=== PATIENT | male | born 1955 | race Caucasian/White ===

== ENCOUNTER 2016-11-21 19:22 | Emergency (ER) | payer OTHER ==
[~2016-11-21 19:22] MED LIST: ASPIR 8181 MG PO; BACTROBAN2% TP; CEL500 PO; CLARITIN REDITAB5 MG PO; COLCRYS0.6 M1 PO; FLA500 PO; FLO4 PO; HECORIA1 M1 PO; IMODIUM2 MG PO; LAC PO; LANTUS SOLOS100 U/M1 SQ; LASIX20 MG PO; LEVAQUIN750 MG PO; MG PLUS PROTEIN1 TAB PO; MP PO; NEU300 PO; NIFEDIAC CC PO; NOR10 PO; NOR10T PO; NOVOLOG100 U/ML SC; PREDNISONE2.5 MG PO; PROGRAF1 MG PO; PROTEIN PO; RANITIDINE HCL150 M1 PO; SENSIPAR30 M1 PO; SIMVASTATIN10 M1 PO; STOOL SOFTENER100 MG PO; ZOCOR10 MG PO
[2016-11-21 19:28] VITALS: BP 183/91
== END 2016-11-21 21:02 | disposition home or self-care (01) ==
LOC: ED 19:22
DX: H95.42 Postprocedural hemorrhage of ear and mastoid process following other procedure (principal); I63.9 Cerebral infarction, unspecified; I10 Essential (primary) hypertension; Z79.899 Other long term (current) drug therapy

== ENCOUNTER 2017-02-13 07:11 | Inpatient (IN) | payer OTHER ==
[~2017-02-13] VITALS: Ht 165.1 cm; Wt 58.1 kg
[~2017-02-13 07:11] MED LIST changes: -COLCRYS0.6 M1 PO; +COLCRYS0.6 M2 PO
[2017-02-13 08:09] LABS: microscopic required? YES; urine erythrocyte 1+ (NEGATIVE)
[2017-02-13 08:13] LABS: BASOPHIL % 0.2 % (0-2); CALCIUM 8.7 mg/dL (8.5-10.1); CARBON DIOXIDE 27.1 mmol/L (21-32); CREATININE SERUM 2.1 mg/dL (0.7-1.3); PLATELET COUNT 352 x10^3mcL (130-400); POTASSIUM SERUM 4.2 mmol/L (3.5-5.1); RED CELL DISTRIBUTION WIDTH 17.8 % (11.5-14.5)
[2017-02-13 08:19] LABS: ALBUMIN 3.4 g/dL (3.4-5.0); BILIRUBIN TOTAL 0.6 mg/dL (0.20-1.00); TOTAL PROTEIN, SERUM 7.4 g/dL (6.4-8.2)
[2017-02-13] MEDS ORDERED: FLE10 PO (09:12)
[2017-02-13] MEDS ORDERED: SENSIPAR30 M1 PO (09:14)
[2017-02-13] MEDS ORDERED: CARVEDILOL25 M1 PO (09:15)
[2017-02-13] MEDS ORDERED: MINOXIDIL2.5 MG PO (09:15)
[2017-02-13] MEDS ORDERED: VITAMIN D50000 I4 PO (09:17)
[2017-02-13] MEDS ORDERED: SIMVASTATIN10 M1 PO (09:17)
[2017-02-13] MEDS ORDERED: PROGRAF1 MG PO (09:19)
[2017-02-13] MEDS ORDERED: ALLOPURINOL100 MG PO (09:20)
[2017-02-13 10:21] LABS: MAGNESIUM 1.4 mg/dL (1.8-2.4); PHOSPHOROUS 4.2 mg/dL (2.5-4.9)
[2017-02-13 10:29] LABS: FREE T4 1.35 ng/dL (0.76-1.46); FREE THYROXINE INDEX 3.4 ug/dL (1.4-4.5); T3 TOTAL 0.7 ng/mL; T4(THYROXINE) 9.2 ug/dL (4.7-13.3)
[2017-02-13 11:37] LABS: RED BLOOD CELLS 4.35 M/mm3 (4.52-5.90)
[2017-02-13 12:09] VITALS: BP 144/77
[2017-02-13 12:14] LABS: IRON 23 ug/dL (65-170); TOTAL IRON BINDING CAPACITY 195 ug/dL (250-450)
[2017-02-13 20:26] VITALS: BP 151/77
[2017-02-13 21:47] LABS: AMPHETAMINE QUAL UR NONE DETECTED (NEG <=1000)
[2017-02-14 05:35] LABS: CALCIUM 8.4 mg/dL (8.5-10.1); CARBON DIOXIDE 23.9 mmol/L (21-32); MAGNESIUM 1.7 mg/dL (1.8-2.4); PHOSPHOROUS 4.1 mg/dL (2.5-4.9); POTASSIUM SERUM 3.9 mmol/L (3.5-5.1)
[2017-02-14 05:47] LABS: BASOPHIL % 0.7 % (0-2); PLATELET COUNT 331 x10^3mcL (130-400)
[2017-02-14 05:49] LABS: RED CELL DISTRIBUTION WIDTH 17.8 % (11.5-14.5)
[2017-02-14 05:51] VITALS: BP 151/73
[2017-02-14 09:17] VITALS: BP 166/77
[2017-02-14 12:37] VITALS: BP 126/75
[2017-02-14 17:01] VITALS: BP 155/78
[2017-02-14 21:04] VITALS: BP 143/75
[2017-02-15 04:30] VITALS: BP 148/73
[2017-02-15 06:48] LABS: BASOPHIL % 0.8 % (0-2)
[2017-02-15 06:51] LABS: ALBUMIN 2.6 g/dL (3.4-5.0); CALCIUM 9.1 mg/dL (8.5-10.1); CREATININE SERUM 1.8 mg/dL (0.7-1.3); MAGNESIUM 1.9 mg/dL (1.8-2.4); PHOSPHOROUS 3.3 mg/dL (2.5-4.9); POTASSIUM SERUM 3.8 mmol/L (3.5-5.1)
[2017-02-15 07:33] LABS: RED CELL DISTRIBUTION WIDTH 17.8 % (11.5-14.5)
[2017-02-15 07:35] LABS: rbc morphology (normal/abnorm) ABNORMAL (NORMAL); schistocyte (helmet cell) 2+
[2017-02-15 07:36] LABS: PLATELET COUNT 319 x10^3mcL (130-400)
[2017-02-15 08:44] VITALS: BP 156/77
[2017-02-15 17:07] VITALS: BP 132/67
[2017-02-15 20:21] VITALS: BP 156/76
[2017-02-16] VITALS (7 sets, daily range): BP systolic 119–188; BP diastolic 62–87
[2017-02-16 06:18] LABS: BASOPHIL % 1.1 % (0-2); PLATELET COUNT 351 x10^3mcL (130-400)
[2017-02-16 06:24] LABS: CALCIUM 9.8 mg/dL (8.5-10.1); CARBON DIOXIDE 22.9 mmol/L (21-32); CREATININE SERUM 1.8 mg/dL (0.7-1.3); MAGNESIUM 1.5 mg/dL (1.8-2.4); PHOSPHOROUS 3.2 mg/dL (2.5-4.9); POTASSIUM SERUM 3.7 mmol/L (3.5-5.1)
[2017-02-16 07:06] LABS: RED CELL DISTRIBUTION WIDTH 17.4 % (11.5-14.5)
[2017-02-16] MEDS ORDERED: FLA500 PO (07:52)
[2017-02-16] MEDS ORDERED: CIPRO500 MG PO (07:54)
[2017-02-16] MEDS ORDERED: LAC PO (07:54)
[2017-02-16] MEDS ORDERED: COL100 PO (07:55)
[2017-02-16] MEDS ORDERED: FIBER625 MG PO (08:07)
[2017-02-16] MEDS ORDERED: PRI20 PO (09:21)
[2017-02-16] MEDS ORDERED: LAC30L PO (09:22)
== END 2017-02-16 17:30 | disposition home or self-care (01) | DRG 244 ==
LOC: ED 07:11 → DU 09:30
PROVIDERS: Emergency Medicine; Family Medicine Sports Medicine; Internal Medicine Gastroenterology; ADMIT Family Medicine
PROC: 0DDN8ZX Extraction of Sigmoid Colon, Via Natural or Artificial Opening Endoscopic, Diagnostic (ICD-10-PCS; principal; 2017-02-16 10:30)
PROC: 0DBN8ZZ Excision of Sigmoid Colon, Via Natural or Artificial Opening Endoscopic (ICD-10-PCS; 2017-02-16 10:30)
DX: K57.32 Diverticulitis of large intestine without perforation or abscess without bleeding (principal); N17.0 Acute kidney failure with tubular necrosis; E43 Unspecified severe protein-calorie malnutrition; I50.43 Acute on chronic combined systolic (congestive) and diastolic (congestive) heart failure; N18.3 Chronic kidney disease, stage 3 (moderate); Z94.0 Kidney transplant status; I13.0 Hypertensive heart and chronic kidney disease with heart failure and stage 1 through stage 4 chronic kidney disease, or unspecified chronic kidney disease; E11.51 Type 2 diabetes mellitus with diabetic peripheral angiopathy without gangrene; N28.1 Cyst of kidney, acquired; K64.8 Other hemorrhoids; K63.5 Polyp of colon; D63.1 Anemia in chronic kidney disease; E83.42 Hypomagnesemia; E78.5 Hyperlipidemia, unspecified; E03.9 Hypothyroidism, unspecified; Z68.1 Body mass index [BMI] 19.9 or less, adult; Z87.891 Personal history of nicotine dependence; Z85.828 Personal history of other malignant neoplasm of skin
CPT/HCPCS: 45380; 82962; 83880; 84439; 87046; 87046-59; J1200; J1610; J1956; J2250; J2270; J2310; J2405; J3010; J3475; J3490; J7030; J7507; Q0092

== ENCOUNTER 2017-03-27 17:13 | Inpatient (IN) | payer OTHER ==
[~2017-03-27] VITALS: Ht 165.1 cm; Wt 70.5 kg
[~2017-03-27 17:13] MED LIST changes: +ALLOPURINOL100 MG PO; +CARVEDILOL25 M1 PO; +CIPRO500 MG PO; +COL100 PO; +FIBER625 MG PO; +FLE10 PO; +LAC30L PO; +MINOXIDIL2.5 MG PO; +PRI20 PO; +VITAMIN D50000 I4 PO
[2017-03-27 20:59] LABS: CARBON DIOXIDE 26.5 mmol/L (21-32); CREATININE SERUM 2.6 mg/dL (0.7-1.3); POTASSIUM SERUM 4.6 mmol/L (3.5-5.1)
[2017-03-27 21:00] LABS: CALCIUM 8.6 mg/dL (8.5-10.1)
[2017-03-27 21:10] LABS: BILIRUBIN TOTAL 0.3 mg/dL (0.20-1.00); FREE T4 1.13 ng/dL (0.76-1.46); TOTAL PROTEIN, SERUM 7.8 g/dL (6.4-8.2)
[2017-03-27 21:11] LABS: ALBUMIN 2.9 g/dL (3.4-5.0)
[2017-03-27 21:20] LABS: BASOPHIL % 0.2 % (0-2)
[2017-03-27 21:21] LABS: UA SPECIFIC GRAVITY 1.015 (1.005-1.035); microscopic required? YES; urine erythrocyte 1+ (NEGATIVE)
[2017-03-27 21:25] LABS: PLATELET COUNT 603 x10^3mcL (130-400); RED CELL DISTRIBUTION WIDTH 19.5 % (11.5-14.5)
[2017-03-27] MEDS ORDERED: NEU300 (23:37)
[2017-03-27] MEDS ORDERED: NOVI (23:38)
[2017-03-28 01:06] VITALS: BP 167/90
[2017-03-28 02:40] LABS: PHOSPHOROUS 5.1 mg/dL (2.5-4.9)
[2017-03-28 02:41] LABS: T3 TOTAL 0.99 ng/mL
[2017-03-28 02:44] LABS: CHOLESTEROL/HDL RATIO 2.3
[2017-03-28 02:47] LABS: FREE T4 1.16 ng/dL (0.76-1.46); FREE THYROXINE INDEX 2.8 ug/dL (1.4-4.5); T4(THYROXINE) 8.9 ug/dL (4.7-13.3)
[2017-03-28 04:18] LABS: RED CELL DISTRIBUTION WIDTH 19.7 % (11.5-14.5)
[2017-03-28 04:23] LABS: CALCIUM 8.3 mg/dL (8.5-10.1); CARBON DIOXIDE 26.7 mmol/L (21-32); CREATININE SERUM 2.6 mg/dL (0.7-1.3); POTASSIUM SERUM 3.5 mmol/L (3.5-5.1)
[2017-03-28 04:35] LABS: PLATELET COUNT 543 x10^3mcL (130-400)
[2017-03-28 04:36] LABS: BAND NEUTROPHIL 3 % (0-10); MONOCYTE 2 % (0-7); SEGMENTED NEUTROPHILS 50 % (37-75); rbc morphology (normal/abnorm) ABNORMAL (NORMAL)
[2017-03-28 04:37] LABS: PLATELET MORPHOLOGY PLATELETS INCREASED
[2017-03-28 05:37] VITALS: BP 134/77
[2017-03-28 07:30] LABS: AMPHETAMINE QUAL UR NONE DETECTED (NEG <=1000)
[2017-03-28 09:18] VITALS: BP 125/67
[2017-03-28 12:30] VITALS: BP 140/82
[2017-03-28 17:20] VITALS: BP 147/85
[2017-03-28 20:56] VITALS: BP 140/81
[2017-03-29 06:23] LABS: PLATELET COUNT 500 x10^3mcL (130-400); RED CELL DISTRIBUTION WIDTH 19.5 % (11.5-14.5)
[2017-03-29 06:24] VITALS: BP 125/80
[2017-03-29 06:36] LABS: CALCIUM 8.5 mg/dL (8.5-10.1); CREATININE SERUM 2.6 mg/dL (0.7-1.3); PHOSPHOROUS 5.5 mg/dL (2.5-4.9); POTASSIUM SERUM 3.9 mmol/L (3.5-5.1); URIC ACID 5.2 mg/dL (3.5-7.2)
[2017-03-29 08:10] LABS: MONOCYTE 5 % (0-7); SEGMENTED NEUTROPHILS 77 % (37-75); rbc morphology (normal/abnorm) ABNORMAL (NORMAL)
[2017-03-29 10:05] VITALS: BP 136/75
[2017-03-29 12:57] VITALS: BP 125/71
[2017-03-29 17:09] VITALS: BP 132/76
[2017-03-29 20:36] VITALS: BP 121/85
[2017-03-30 05:42] VITALS: BP 104/65
[2017-03-30 06:26] LABS: CALCIUM 8.9 mg/dL (8.5-10.1); CARBON DIOXIDE 25.7 mmol/L (21-32); CREATININE SERUM 2.6 mg/dL (0.7-1.3)
[2017-03-30 07:31] LABS: PLATELET COUNT 525 x10^3mcL (130-400); RED CELL DISTRIBUTION WIDTH 19.8 % (11.5-14.5)
[2017-03-30 08:57] VITALS: BP 138/73
[2017-03-30 09:50] LABS: BAND NEUTROPHIL 0 % (0-10); BASOPHIL 0 % (0-2); MONOCYTE 4 % (0-7); SEGMENTED NEUTROPHILS 77 % (37-75)
[2017-03-30 09:52] LABS: acanthocyte (spur cell) 1+; burr cell (echinocyte) 1+; rbc morphology (normal/abnorm) ABNORMAL (NORMAL); schistocyte (helmet cell) 1+; target cell (codocyte) 1+
[2017-03-30 09:53] LABS: ovalocyte/elliptocyte 1+
[2017-03-30 13:49] VITALS: BP 127/73
[2017-03-30 16:05] VITALS: Ht 165.1 cm; Wt 70.5 kg
[2017-03-30] MEDS ORDERED: LASIX20 MG PO (16:16)
[2017-03-30] MEDS ORDERED: HYDRALAZINE HCL25 MG PO ×2 (16:17→16:22)
[2017-03-30] MEDS ORDERED: ISOSORBIDE MONO60 MG PO ×2 (16:18→16:22)
[2017-03-30 17:35] VITALS: BP 118/80
== END 2017-03-30 18:33 | disposition home or self-care (01) | DRG 469 ==
LOC: ED 17:13 → DU 22:06
PROVIDERS: Emergency Medicine; ADMIT Family Medicine
DX: N17.0 Acute kidney failure with tubular necrosis (principal); E44.0 Moderate protein-calorie malnutrition; I31.3 Pericardial effusion (noninflammatory); E11.22 Type 2 diabetes mellitus with diabetic chronic kidney disease; E11.51 Type 2 diabetes mellitus with diabetic peripheral angiopathy without gangrene; I48.91 Unspecified atrial fibrillation; I12.9 Hypertensive chronic kidney disease with stage 1 through stage 4 chronic kidney disease, or unspecified chronic kidney disease; E11.65 Type 2 diabetes mellitus with hyperglycemia; Z94.0 Kidney transplant status; N18.3 Chronic kidney disease, stage 3 (moderate); R80.9 Proteinuria, unspecified; E03.9 Hypothyroidism, unspecified; D63.1 Anemia in chronic kidney disease; M10.9 Gout, unspecified; Z79.4 Long term (current) use of insulin; Z79.82 Long term (current) use of aspirin; Z85.828 Personal history of other malignant neoplasm of skin
CPT/HCPCS: 82962; 83880; 84439; J1940; J7030; J7040; J7507; Q0092

== ENCOUNTER 2017-06-06 10:22 | Inpatient (IN) | payer OTHER ==
[~2017-06-06] VITALS: Ht 165.1 cm; Wt 55.9 kg
[~2017-06-06 10:22] MED LIST changes: +HYDRALAZINE HCL25 MG PO; +ISOSORBIDE MONO60 MG PO; +NEU300; +NOVI
[2017-06-06 11:30] LABS: BASOPHIL % 0.2 % (0-2)
[2017-06-06 11:31] LABS: PLATELET COUNT 468 x10^3mcL (130-400); RED CELL DISTRIBUTION WIDTH 16.8 % (11.5-14.5)
[2017-06-06 11:37] LABS: BILIRUBIN TOTAL 0.29 mg/dL (0.20-1.00); CALCIUM 7.7 mg/dL (8.5-10.1); CARBON DIOXIDE 21.3 mmol/L (21-32); POTASSIUM SERUM 4.9 mmol/L (3.5-5.1)
[2017-06-06 11:41] LABS: ALBUMIN 2.6 g/dL (3.4-5.0)
[2017-06-06 11:43] LABS: CREATININE SERUM 4.2 mg/dL (0.7-1.3)
[2017-06-06 12:53] LABS: CHOLESTEROL/HDL RATIO 3.1; PHOSPHOROUS 4.7 mg/dL (2.5-4.9)
[2017-06-06 13:32] LABS: T3 TOTAL 0.46 ng/mL
[2017-06-06 14:04] LABS: FREE T4 1.12 ng/dL (0.76-1.46); FREE THYROXINE INDEX 2.4 ug/dL (1.4-4.5); T4(THYROXINE) 7.1 ug/dL (4.7-13.3)
[2017-06-06 14:36] VITALS: BP 169/61
[2017-06-06 17:00] VITALS: BP 122/50
[2017-06-06 17:02] LABS: microscopic required? YES; urine erythrocyte TRACE (NEGATIVE)
[2017-06-06 17:04] LABS: AMPHETAMINE QUAL UR NONE DETECTED (NEG <=1000)
[2017-06-06 18:18] VITALS: BP 122/50
[2017-06-06 21:59] VITALS: BP 133/61
[2017-06-07 03:40] LABS: BASOPHIL % 0.7 % (0-2)
[2017-06-07 03:43] LABS: PLATELET COUNT 432 x10^3mcL (130-400); RED CELL DISTRIBUTION WIDTH 16.4 % (11.5-14.5)
[2017-06-07 05:46] LABS: CARBON DIOXIDE 20.5 mmol/L (21-32); POTASSIUM SERUM 4.8 mmol/L (3.5-5.1)
[2017-06-07 05:47] LABS: PHOSPHOROUS 5.4 mg/dL (2.5-4.9); URIC ACID 6.8 mg/dL (3.5-7.2)
[2017-06-07 05:50] LABS: CALCIUM 7.3 mg/dL (8.5-10.1); CREATININE SERUM 4.3 mg/dL (0.7-1.3)
[2017-06-07 06:25] VITALS: BP 125/62
[2017-06-07 10:00] VITALS: BP 150/100
[2017-06-07 14:15] VITALS: BP 114/55
[2017-06-07 17:14] VITALS: BP 122/59
[2017-06-07 21:01] VITALS: BP 128/62
[2017-06-08 05:40] VITALS: BP 128/71
[2017-06-08 06:50] LABS: CALCIUM 7.9 mg/dL (8.5-10.1); CARBON DIOXIDE 20.2 mmol/L (21-32); PHOSPHOROUS 5.2 mg/dL (2.5-4.9); POTASSIUM SERUM 4.3 mmol/L (3.5-5.1)
[2017-06-08 07:10] LABS: PLATELET COUNT 390 x10^3mcL (130-400)
[2017-06-08 07:11] LABS: RED CELL DISTRIBUTION WIDTH 16.7 % (11.5-14.5)
[2017-06-08 07:57] LABS: CREATININE SERUM 4.2 mg/dL (0.7-1.3)
[2017-06-08 09:58] VITALS: BP 117/71
[2017-06-08 10:45] LABS: BAND NEUTROPHIL 7 % (0-10); BASOPHIL 0 % (0-2); MONOCYTE 6 % (0-7); SEGMENTED NEUTROPHILS 77 % (37-75)
[2017-06-08 10:47] LABS: PLATELET MORPHOLOGY PLATELETS NORMAL; rbc morphology (normal/abnorm) ABNORMAL (NORMAL)
[2017-06-08 10:48] LABS: acanthocyte (spur cell) 1+; burr cell (echinocyte) 1+; ovalocyte/elliptocyte 1+; schistocyte (helmet cell) 1+; target cell (codocyte) 1+
[2017-06-08 14:09] VITALS: BP 141/88; BP 176/91
[2017-06-08 17:40] VITALS: BP 140/71
[2017-06-08 21:24] VITALS: BP 133/74
[2017-06-09 05:55] VITALS: BP 118/67
[2017-06-09 07:09] LABS: CARBON DIOXIDE 21.3 mmol/L (21-32); POTASSIUM SERUM 4.2 mmol/L (3.5-5.1)
[2017-06-09 07:12] LABS: CREATININE SERUM 4.2 mg/dL (0.7-1.3)
[2017-06-09 07:17] LABS: PLATELET COUNT 389 x10^3mcL (130-400)
[2017-06-09 10:08] VITALS: BP 126/76
[2017-06-09 14:33] VITALS: BP 134/76
[2017-06-09 18:16] VITALS: BP 144/75
[2017-06-09 20:50] VITALS: BP 139/78
[2017-06-10] VITALS (11 sets, daily range): BP systolic 71–149; BP diastolic 43–96
[2017-06-10 08:07] LABS: CALCIUM 8.8 mg/dL (8.5-10.1); CARBON DIOXIDE 20.5 mmol/L (21-32); CREATININE SERUM 3.9 mg/dL (0.7-1.3); MAGNESIUM 1.7 mg/dL (1.8-2.4); PHOSPHOROUS 4.6 mg/dL (2.5-4.9); POTASSIUM SERUM 3.4 mmol/L (3.5-5.1)
[2017-06-10 08:32] LABS: PLATELET COUNT 459 x10^3mcL (130-400); RED CELL DISTRIBUTION WIDTH 16.8 % (11.5-14.5)
[2017-06-10 11:55] LABS: BAND NEUTROPHIL 0 % (0-10); BASOPHIL 0 % (0-2); MONOCYTE 2 % (0-7); SEGMENTED NEUTROPHILS 93 % (37-75); rbc morphology (normal/abnorm) ABNORMAL (NORMAL)
[2017-06-10 11:56] LABS: PLATELET MORPHOLOGY PLATELETS INCREASED; acanthocyte (spur cell) 4+; schistocyte (helmet cell) 2+
[2017-06-11] VITALS (15 sets, daily range): BP systolic 135–179; BP diastolic 75–98
[2017-06-11 05:48] LABS: CALCIUM 9.4 mg/dL (8.5-10.1); CARBON DIOXIDE 22.6 mmol/L (21-32); MAGNESIUM 3.3 mg/dL (1.8-2.4); POTASSIUM SERUM 3.6 mmol/L (3.5-5.1)
[2017-06-11 06:02] LABS: PLATELET COUNT 460 x10^3mcL (130-400); RED CELL DISTRIBUTION WIDTH 16.7 % (11.5-14.5)
[2017-06-11 06:03] LABS: BAND NEUTROPHIL 10 % (0-10); SEGMENTED NEUTROPHILS 80 % (37-75); rbc morphology (normal/abnorm) ABNORMAL (NORMAL)
[2017-06-11 06:04] LABS: PLATELET MORPHOLOGY PLATELETS INCREASED
[2017-06-12] VITALS (16 sets, daily range): BP systolic 121–164; BP diastolic 7–101
[2017-06-12 06:01] LABS: CALCIUM 8.7 mg/dL (8.5-10.1); MAGNESIUM 2.5 mg/dL (1.8-2.4); PHOSPHOROUS 5.5 mg/dL (2.5-4.9)
[2017-06-12 06:15] LABS: POTASSIUM SERUM 2.8 mmol/L (3.5-5.1)
[2017-06-12 06:17] LABS: CREATININE SERUM 4.1 mg/dL (0.7-1.3)
[2017-06-12 06:23] LABS: PLATELET COUNT 464 x10^3mcL (130-400); RED CELL DISTRIBUTION WIDTH 17.1 % (11.5-14.5)
[2017-06-12 06:32] LABS: PLATELET MORPHOLOGY LARGE PLATELET SEEN; rbc morphology (normal/abnorm) ABNORMAL (NORMAL); tear drop cell (dacryocyte) 1+
[2017-06-12 08:01] LABS: BAND NEUTROPHIL 9 % (0-10); MONOCYTE 5 % (0-7); SEGMENTED NEUTROPHILS 76 % (37-75)
[2017-06-12 08:02] LABS: METAMYELOCTE 2 % (0-2); MYELOCYTE 1 % (0-2)
[2017-06-12 08:07] LABS: acanthocyte (spur cell) 3+
[2017-06-12 08:08] LABS: schistocyte (helmet cell) 2+; target cell (codocyte) 1+
[2017-06-12 11:38] LABS: CALCIUM 8.8 mg/dL (8.5-10.1); CARBON DIOXIDE 28.3 mmol/L (21-32); CREATININE SERUM 2.1 mg/dL (0.7-1.3)
[2017-06-12 11:47] LABS: POTASSIUM SERUM 2.7 mmol/L (3.5-5.1)
[2017-06-12 14:16] LABS: CALCIUM 8.4 mg/dL (8.5-10.1); CARBON DIOXIDE 29.1 mmol/L (21-32); CREATININE SERUM 2.5 mg/dL (0.7-1.3)
[2017-06-12 14:18] LABS: POTASSIUM SERUM 2.7 mmol/L (3.5-5.1)
[2017-06-13] VITALS (19 sets, daily range): BP systolic 140–172; BP diastolic 77–97
[2017-06-13 05:54] LABS: CALCIUM 9.4 mg/dL (8.5-10.1); CARBON DIOXIDE 28.7 mmol/L (21-32); POTASSIUM SERUM 3.6 mmol/L (3.5-5.1)
[2017-06-13 06:01] LABS: PLATELET COUNT 500 x10^3mcL (130-400); RED CELL DISTRIBUTION WIDTH 17.5 % (11.5-14.5)
[2017-06-13 06:55] LABS: ATYPICAL LYMPH 1 %; BAND NEUTROPHIL 0 % (0-10); BASOPHIL 0 % (0-2); MONOCYTE 5 % (0-7); SEGMENTED NEUTROPHILS 87 % (37-75)
[2017-06-13 06:56] LABS: PLATELET MORPHOLOGY PLATELETS INCREASED; rbc morphology (normal/abnorm) ABNORMAL (NORMAL); schistocyte (helmet cell) 2+
[2017-06-14] VITALS (13 sets, daily range): BP systolic 107–182; BP diastolic 52–123
[2017-06-14 05:38] LABS: CALCIUM 9.9 mg/dL (8.5-10.1); CARBON DIOXIDE 27.7 mmol/L (21-32); MAGNESIUM 2.1 mg/dL (1.8-2.4); PHOSPHOROUS 3.1 mg/dL (2.5-4.9); POTASSIUM SERUM 3.1 mmol/L (3.5-5.1)
[2017-06-14 05:44] LABS: PLATELET COUNT 487 x10^3mcL (130-400); RED CELL DISTRIBUTION WIDTH 17.4 % (11.5-14.5)
[2017-06-14 06:02] LABS: BAND NEUTROPHIL 3 % (0-10); METAMYELOCTE 4 % (0-2); MONOCYTE 2 % (0-7); MYELOCYTE 5 % (0-2); SEGMENTED NEUTROPHILS 82 % (37-75)
[2017-06-14 06:05] LABS: acanthocyte (spur cell) 2+; rbc morphology (normal/abnorm) ABNORMAL (NORMAL)
[2017-06-14 06:06] LABS: target cell (codocyte) 1+; tear drop cell (dacryocyte) 1+
[2017-06-14 06:07] LABS: PLATELET MORPHOLOGY LARGE PLATELET SEEN
[2017-06-14 06:08] LABS: ovalocyte/elliptocyte 1+
[2017-06-15 03:06] VITALS: BP 169/96
[2017-06-15 05:34] LABS: PLATELET COUNT 500 x10^3mcL (130-400)
[2017-06-15 05:40] LABS: CALCIUM 9.8 mg/dL (8.5-10.1); CARBON DIOXIDE 28.6 mmol/L (21-32); CREATININE SERUM 2.9 mg/dL (0.7-1.3); PHOSPHOROUS 4.6 mg/dL (2.5-4.9); POTASSIUM SERUM 3.5 mmol/L (3.5-5.1)
[2017-06-15 05:43] LABS: ALBUMIN 2.1 g/dL (3.4-5.0)
[2017-06-15 06:05] LABS: BAND NEUTROPHIL 5 % (0-10); METAMYELOCTE 3 % (0-2); MONOCYTE 3 % (0-7); MYELOCYTE 4 % (0-2); SEGMENTED NEUTROPHILS 84 % (37-75)
[2017-06-15 06:06] LABS: rbc morphology (normal/abnorm) ABNORMAL (NORMAL)
[2017-06-15 06:09] LABS: acanthocyte (spur cell) 3+; target cell (codocyte) 1+
[2017-06-15 08:13] VITALS: BP 164/89
[2017-06-15 12:42] VITALS: BP 145/92
[2017-06-15 16:14] VITALS: BP 151/82
[2017-06-15 19:20] VITALS: BP 166/95
[2017-06-15 23:08] VITALS: BP 163/98
[2017-06-16 03:30] VITALS: BP 158/77
[2017-06-16 06:10] VITALS: BP 155/90
[2017-06-16 07:04] LABS: CALCIUM 9.1 mg/dL (8.5-10.1); CARBON DIOXIDE 24.8 mmol/L (21-32); POTASSIUM SERUM 3.4 mmol/L (3.5-5.1)
[2017-06-16 08:39] LABS: PLATELET COUNT 403 x10^3mcL (130-400)
[2017-06-16 09:02] VITALS: BP 138/81
[2017-06-16 10:08] LABS: BAND NEUTROPHIL 6 % (0-10); BASOPHIL 0 % (0-2); METAMYELOCTE 3 % (0-2); MONOCYTE 3 % (0-7); MYELOCYTE 2 % (0-2); SEGMENTED NEUTROPHILS 84 % (37-75); rbc morphology (normal/abnorm) ABNORMAL (NORMAL); target cell (codocyte) 1+
[2017-06-16 10:09] LABS: acanthocyte (spur cell) 1+
[2017-06-16 10:12] LABS: burr cell (echinocyte) 1+
[2017-06-16 13:59] VITALS: BP 157/86
[2017-06-16 18:35] VITALS: BP 145/85
[2017-06-16 21:37] VITALS: BP 172/94
[2017-06-17 05:09] VITALS: BP 179/84
[2017-06-17 06:23] LABS: PLATELET COUNT 357 x10^3mcL (130-400)
[2017-06-17 06:43] LABS: CARBON DIOXIDE 25.1 mmol/L (21-32); CREATININE SERUM 2.7 mg/dL (0.7-1.3); POTASSIUM SERUM 3.1 mmol/L (3.5-5.1)
[2017-06-17 07:05] LABS: RED CELL DISTRIBUTION WIDTH 17.9 % (11.5-14.5)
[2017-06-17 08:32] VITALS: BP 162/85
[2017-06-17 09:43] LABS: BAND NEUTROPHIL 4 % (0-10); BASOPHIL 0 % (0-2); METAMYELOCTE 2 % (0-2); MONOCYTE 3 % (0-7); MYELOCYTE 1 % (0-2); SEGMENTED NEUTROPHILS 87 % (37-75); acanthocyte (spur cell) 1+; rbc morphology (normal/abnorm) ABNORMAL (NORMAL); target cell (codocyte) 1+
[2017-06-17 09:44] LABS: burr cell (echinocyte) 1+
[2017-06-17 14:15] VITALS: BP 154/85
[2017-06-17 17:34] VITALS: BP 165/83
[2017-06-17 21:09] VITALS: BP 165/83
[2017-06-18 04:59] VITALS: BP 124/88
[2017-06-18 06:14] LABS: PLATELET COUNT 347 x10^3mcL (130-400)
[2017-06-18 06:19] LABS: CALCIUM 9.2 mg/dL (8.5-10.1); CARBON DIOXIDE 23.3 mmol/L (21-32); CREATININE SERUM 2.5 mg/dL (0.7-1.3); POTASSIUM SERUM 3.4 mmol/L (3.5-5.1)
[2017-06-18 08:12] LABS: RED CELL DISTRIBUTION WIDTH 18.8 % (11.5-14.5)
[2017-06-18 08:35] LABS: SEGMENTED NEUTROPHILS 99 % (37-75)
[2017-06-18 08:37] LABS: rbc morphology (normal/abnorm) ABNORMAL (NORMAL); schistocyte (helmet cell) 3+
[2017-06-18 08:38] LABS: PLATELET MORPHOLOGY PLATELETS INCREASED; acanthocyte (spur cell) 2+
[2017-06-18 09:22] VITALS: BP 164/92
[2017-06-18 12:11] VITALS: BP 162/89
[2017-06-18 12:58] VITALS: BP 162/89
[2017-06-18 16:24] VITALS: BP 153/81
[2017-06-18 21:28] VITALS: BP 169/80
[2017-06-19] VITALS (7 sets, daily range): BP systolic 119–173; BP diastolic 62–95
[2017-06-19 06:38] LABS: PLATELET COUNT 322 x10^3mcL (130-400)
[2017-06-19 06:52] LABS: CALCIUM 9.3 mg/dL (8.5-10.1); CARBON DIOXIDE 23.4 mmol/L (21-32); CREATININE SERUM 2.4 mg/dL (0.7-1.3); POTASSIUM SERUM 3.2 mmol/L (3.5-5.1)
[2017-06-19 07:29] LABS: RED CELL DISTRIBUTION WIDTH 18.4 % (11.5-14.5)
[2017-06-19 07:43] LABS: BAND NEUTROPHIL 2 % (0-10); BASOPHIL 0 % (0-2); MONOCYTE 4 % (0-7); SEGMENTED NEUTROPHILS 93 % (37-75)
[2017-06-19 07:44] LABS: rbc morphology (normal/abnorm) ABNORMAL (NORMAL)
[2017-06-19 07:45] LABS: schistocyte (helmet cell) 3+; target cell (codocyte) 1+
[2017-06-20 06:16] VITALS: BP 126/71
[2017-06-20 09:05] VITALS: BP 108/55
[2017-06-20 10:28] LABS: CALCIUM 8.6 mg/dL (8.5-10.1); CARBON DIOXIDE 19.1 mmol/L (21-32); CREATININE SERUM 3.2 mg/dL (0.7-1.3)
[2017-06-20 10:44] LABS: PLATELET COUNT 207 x10^3mcL (130-400)
[2017-06-20 11:24] LABS: BAND NEUTROPHIL 3 % (0-10); BASOPHIL 0 % (0-2); MONOCYTE 4 % (0-7); SEGMENTED NEUTROPHILS 91 % (37-75)
[2017-06-20 11:25] LABS: burr cell (echinocyte) 1+; rbc morphology (normal/abnorm) ABNORMAL (NORMAL)
[2017-06-20 11:26] LABS: acanthocyte (spur cell) 1+; schistocyte (helmet cell) 1+
[2017-06-20 11:27] LABS: ovalocyte/elliptocyte 1+; target cell (codocyte) 1+
[2017-06-20 12:50] VITALS: BP 119/67
[2017-06-20 14:11] LABS: PLATELET COUNT 201 x10^3mcL (130-400)
[2017-06-20 14:13] LABS: RED CELL DISTRIBUTION WIDTH 17.7 % (11.5-14.5)
[2017-06-20 15:28] LABS: MONOCYTE 4 % (0-7); SEGMENTED NEUTROPHILS 89 % (37-75)
[2017-06-20 15:29] LABS: BAND NEUTROPHIL 3 % (0-10); BASOPHIL 0 % (0-2); rbc morphology (normal/abnorm) ABNORMAL (NORMAL)
[2017-06-20 15:38] LABS: burr cell (echinocyte) 1+; ovalocyte/elliptocyte 1+; target cell (codocyte) 1+
[2017-06-20 15:40] LABS: schistocyte (helmet cell) 1+
[2017-06-20 15:41] LABS: PLATELET MORPHOLOGY GIANT PLATELET SEEN
[2017-06-20 16:45] VITALS: BP 120/63
[2017-06-20 21:09] VITALS: BP 153/72
[2017-06-20 22:12] LABS: PLATELET COUNT 191 x10^3mcL (130-400)
[2017-06-20 22:15] LABS: RED CELL DISTRIBUTION WIDTH 16.9 % (11.5-14.5)
[2017-06-20 22:27] LABS: BAND NEUTROPHIL 3 % (0-10); BASOPHIL 0 % (0-2); MONOCYTE 4 % (0-7); SEGMENTED NEUTROPHILS 88 % (37-75)
[2017-06-20 22:28] LABS: ovalocyte/elliptocyte 1+; rbc morphology (normal/abnorm) ABNORMAL (NORMAL); target cell (codocyte) 1+
[2017-06-20 22:29] LABS: burr cell (echinocyte) 1+; schistocyte (helmet cell) 1+
[2017-06-21 05:48] VITALS: BP 167/81
[2017-06-21 06:28] LABS: PLATELET COUNT 195 x10^3mcL (130-400)
[2017-06-21 06:31] LABS: RED CELL DISTRIBUTION WIDTH 17.6 % (11.5-14.5)
[2017-06-21 06:38] LABS: CARBON DIOXIDE 20.7 mmol/L (21-32); CREATININE SERUM 3.5 mg/dL (0.7-1.3); MAGNESIUM 1.8 mg/dL (1.8-2.4); POTASSIUM SERUM 4.5 mmol/L (3.5-5.1)
[2017-06-21 08:39] LABS: BAND NEUTROPHIL 1 % (0-10); MONOCYTE 3 % (0-7); SEGMENTED NEUTROPHILS 92 % (37-75); rbc morphology (normal/abnorm) ABNORMAL (NORMAL)
[2017-06-21 08:40] LABS: ovalocyte/elliptocyte 1+; schistocyte (helmet cell) 3+; target cell (codocyte) 1+
[2017-06-21 10:15] VITALS: BP 120/72
[2017-06-21 13:57] VITALS: BP 137/76
[2017-06-21 14:50] LABS: PLATELET COUNT 184 x10^3mcL (130-400)
[2017-06-21 14:52] LABS: RED CELL DISTRIBUTION WIDTH 17.4 % (11.5-14.5)
[2017-06-21 15:01] LABS: CARBON DIOXIDE 17.9 mmol/L (21-32); CREATININE SERUM 3.6 mg/dL (0.7-1.3); POTASSIUM SERUM 4.3 mmol/L (3.5-5.1)
[2017-06-21 15:41] LABS: BAND NEUTROPHIL 0 % (0-10); BASOPHIL 0 % (0-2); MONOCYTE 1 % (0-7); SEGMENTED NEUTROPHILS 92 % (37-75); rbc morphology (normal/abnorm) ABNORMAL (NORMAL)
[2017-06-21 15:45] LABS: schistocyte (helmet cell) 2+; target cell (codocyte) 1+
[2017-06-21 18:30] VITALS: BP 147/83
[2017-06-21 22:58] VITALS: BP 138/76
[2017-06-22] VITALS (9 sets, daily range): BP systolic 125–171; BP diastolic 74–85; Ht 165.1 cm; Wt 55.9 kg
[2017-06-22 06:47] LABS: PLATELET COUNT 208 x10^3mcL (130-400)
[2017-06-22 06:50] LABS: RED CELL DISTRIBUTION WIDTH 18.1 % (11.5-14.5)
[2017-06-22 07:05] LABS: CALCIUM 8.6 mg/dL (8.5-10.1); CARBON DIOXIDE 18.4 mmol/L (21-32); CREATININE SERUM 3.4 mg/dL (0.7-1.3); PHOSPHOROUS 7.3 mg/dL (2.5-4.9); POTASSIUM SERUM 4.7 mmol/L (3.5-5.1)
[2017-06-22 09:40] LABS: BAND NEUTROPHIL 1 % (0-10); BASOPHIL 0 % (0-2); MONOCYTE 2 % (0-7); SEGMENTED NEUTROPHILS 97 % (37-75)
[2017-06-22 09:42] LABS: rbc morphology (normal/abnorm) ABNORMAL (NORMAL)
[2017-06-22 09:43] LABS: schistocyte (helmet cell) 2+
[2017-06-22 09:44] LABS: PLATELET MORPHOLOGY PLATELETS DECREASED
[2017-06-22 22:14] LABS: PLATELET COUNT 212 x10^3mcL (130-400)
[2017-06-22 22:18] LABS: RED CELL DISTRIBUTION WIDTH 20.4 % (11.5-14.5)
[2017-06-22 23:38] LABS: BAND NEUTROPHIL 10 % (0-10); SEGMENTED NEUTROPHILS 80 % (37-75)
[2017-06-22 23:39] LABS: PLATELET MORPHOLOGY LARGE PLATELET SEEN; rbc morphology (normal/abnorm) ABNORMAL (NORMAL)
[2017-06-23 04:48] VITALS: BP 154/79
[2017-06-23 06:18] LABS: CALCIUM 8.6 mg/dL (8.5-10.1); CARBON DIOXIDE 20.1 mmol/L (21-32); CREATININE SERUM 3.4 mg/dL (0.7-1.3); MAGNESIUM 2.2 mg/dL (1.8-2.4); PHOSPHOROUS 6.2 mg/dL (2.5-4.9)
[2017-06-23 06:22] LABS: PLATELET COUNT 211 x10^3mcL (130-400)
[2017-06-23 07:40] LABS: RED CELL DISTRIBUTION WIDTH 19.9 % (11.5-14.5)
[2017-06-23 09:35] VITALS: BP 144/79
[2017-06-23 11:52] LABS: BAND NEUTROPHIL 3 % (0-10); BASOPHIL 0 % (0-2); SEGMENTED NEUTROPHILS 96 % (37-75)
[2017-06-23 11:53] LABS: rbc morphology (normal/abnorm) ABNORMAL (NORMAL)
[2017-06-23 11:54] LABS: PLATELET MORPHOLOGY PLATELETS DECREASED; acanthocyte (spur cell) 3+; burr cell (echinocyte) 2+
[2017-06-23 13:35] VITALS: BP 104/62
[2017-06-23 16:59] VITALS: BP 108/65
[2017-06-23 22:55] VITALS: BP 145/74
[2017-06-24 05:19] VITALS: BP 153/81
[2017-06-24 07:34] LABS: CALCIUM 9.1 mg/dL (8.5-10.1); CARBON DIOXIDE 18.1 mmol/L (21-32); CREATININE SERUM 3.3 mg/dL (0.7-1.3); POTASSIUM SERUM 5.5 mmol/L (3.5-5.1)
[2017-06-24 08:57] VITALS: BP 130/69
[2017-06-24 10:33] LABS: PLATELET COUNT 244 x10^3mcL (130-400)
[2017-06-24 10:35] LABS: RED CELL DISTRIBUTION WIDTH 20.6 % (11.5-14.5)
[2017-06-24 14:20] VITALS: BP 126/68
[2017-06-24 14:57] LABS: SEGMENTED NEUTROPHILS 90 % (37-75)
[2017-06-24 14:58] LABS: BAND NEUTROPHIL 6 % (0-10); MONOCYTE 3 % (0-7); acanthocyte (spur cell) 2+; burr cell (echinocyte) 2+; rbc morphology (normal/abnorm) ABNORMAL (NORMAL)
[2017-06-24 14:59] LABS: PLATELET MORPHOLOGY PLATELETS NORMAL; schistocyte (helmet cell) 1+
[2017-06-24 20:29] VITALS: BP 145/68
[2017-06-25 05:38] VITALS: BP 137/77
[2017-06-25 07:51] LABS: PLATELET COUNT 233 x10^3mcL (130-400)
[2017-06-25 08:05] LABS: CARBON DIOXIDE 19.4 mmol/L (21-32); CREATININE SERUM 3.2 mg/dL (0.7-1.3); PHOSPHOROUS 4.7 mg/dL (2.5-4.9); POTASSIUM SERUM 4.2 mmol/L (3.5-5.1)
[2017-06-25 09:46] VITALS: BP 138/72
[2017-06-25 10:19] VITALS: BP 138/72
[2017-06-25 10:35] LABS: BAND NEUTROPHIL 10 % (0-10); BASOPHIL 0 % (0-2); MONOCYTE 4 % (0-7); SEGMENTED NEUTROPHILS 83 % (37-75)
[2017-06-25 10:36] LABS: PLATELET MORPHOLOGY PLATELETS NORMAL; rbc morphology (normal/abnorm) ABNORMAL (NORMAL)
[2017-06-25 10:37] LABS: acanthocyte (spur cell) 1+; burr cell (echinocyte) 1+; schistocyte (helmet cell) 1+
[2017-06-25 12:21] VITALS: BP 131/77
[2017-06-25 15:31] LABS: UA SPECIFIC GRAVITY 1.015 (1.005-1.035); microscopic required? YES; urine erythrocyte TRACE (NEGATIVE)
[2017-06-25 22:12] VITALS: BP 116/52; BP 133/62
[2017-06-26 06:05] VITALS: BP 111/68
[2017-06-26 08:02] LABS: CARBON DIOXIDE 17.7 mmol/L (21-32); CREATININE SERUM 3.5 mg/dL (0.7-1.3); POTASSIUM SERUM 3.6 mmol/L (3.5-5.1)
[2017-06-26 08:35] VITALS: BP 111/57
[2017-06-26 09:30] LABS: PLATELET COUNT 213 x10^3mcL (130-400)
[2017-06-26 11:52] LABS: BAND NEUTROPHIL 1 % (0-10); BASOPHIL 0 % (0-2); MONOCYTE 4 % (0-7); SEGMENTED NEUTROPHILS 92 % (37-75)
[2017-06-26 11:53] LABS: PLATELET MORPHOLOGY PLATELETS DECREASED; rbc morphology (normal/abnorm) ABNORMAL (NORMAL); schistocyte (helmet cell) 3+
[2017-06-26 13:40] VITALS: BP 119/44
[2017-06-26 17:51] VITALS: BP 124/65
[2017-06-26 21:39] VITALS: BP 116/62
[2017-06-27 06:18] VITALS: BP 134/63
[2017-06-27 07:43] LABS: CALCIUM 8.8 mg/dL (8.5-10.1); CARBON DIOXIDE 17.5 mmol/L (21-32); CREATININE SERUM 3.3 mg/dL (0.7-1.3); POTASSIUM SERUM 3.5 mmol/L (3.5-5.1)
[2017-06-27 08:10] LABS: PLATELET COUNT 204 x10^3mcL (130-400)
[2017-06-27 08:13] LABS: RED CELL DISTRIBUTION WIDTH 20.1 % (11.5-14.5)
[2017-06-27 10:07] VITALS: BP 122/59
[2017-06-27 11:00] VITALS: BP 115/83
[2017-06-27 11:40] LABS: BAND NEUTROPHIL 0 % (0-10); BASOPHIL 0 % (0-2); MONOCYTE 5 % (0-7); SEGMENTED NEUTROPHILS 90 % (37-75)
[2017-06-27 11:41] LABS: rbc morphology (normal/abnorm) ABNORMAL (NORMAL); schistocyte (helmet cell) 1+
[2017-06-27 13:45] VITALS: BP 97/52
[2017-06-27 22:09] VITALS: BP 102/53
[2017-06-28 06:30] VITALS: BP 138/92
== END 2017-06-28 13:55 | disposition expired | DRG 469 ==
LOC: ED 10:22 → DU 11:52 → IC 11:52 → DU 13:30 → IC 06-10 11:03 → DU 06-16 05:53
PROVIDERS: Emergency Medicine; Family Medicine; Family Medicine Sports Medicine; Internal Medicine; Student in an Organized Health Care Education/Training Program
PROC: 5A1945Z Respiratory Ventilation, 24-96 Consecutive Hours (ICD-10-PCS; principal; 2017-06-11)
PROC: 0BH17EZ Insertion of Endotracheal Airway into Trachea, Via Natural or Artificial Opening (ICD-10-PCS; 2017-06-11)
PROC: 02HV33Z Insertion of Infusion Device into Superior Vena Cava, Percutaneous Approach (ICD-10-PCS; 2017-06-12)
PROC: B548ZZA Ultrasonography of Superior Vena Cava, Guidance (ICD-10-PCS; 2017-06-12)
PROC: 30233N1 Transfusion of Nonautologous Red Blood Cells into Peripheral Vein, Percutaneous Approach (ICD-10-PCS; 2017-06-20)
DX: N17.0 Acute kidney failure with tubular necrosis (principal); J96.01 Acute respiratory failure with hypoxia; J69.0 Pneumonitis due to inhalation of food and vomit; G93.41 Metabolic encephalopathy; I50.43 Acute on chronic combined systolic (congestive) and diastolic (congestive) heart failure; K66.1 Hemoperitoneum; E43 Unspecified severe protein-calorie malnutrition; K57.93 Diverticulitis of intestine, part unspecified, without perforation or abscess with bleeding; I48.91 Unspecified atrial fibrillation; S09.90XA Unspecified injury of head, initial encounter; E11.22 Type 2 diabetes mellitus with diabetic chronic kidney disease; R55 Syncope and collapse; I13.0 Hypertensive heart and chronic kidney disease with heart failure and stage 1 through stage 4 chronic kidney disease, or unspecified chronic kidney disease; E03.9 Hypothyroidism, unspecified; N18.9 Chronic kidney disease, unspecified; W01.198A Fall on same level from slipping, tripping and stumbling with subsequent striking against other object, initial encounter; E83.51 Hypocalcemia; M10.9 Gout, unspecified; Z60.2 Problems related to living alone; E87.1 Hypo-osmolality and hyponatremia; G90.8 Other disorders of autonomic nervous system; E83.42 Hypomagnesemia; R31.9 Hematuria, unspecified; E11.65 Type 2 diabetes mellitus with hyperglycemia; Z94.0 Kidney transplant status; Z90.81 Acquired absence of spleen; Z85.828 Personal history of other malignant neoplasm of skin; Y93.89 Activity, other specified; Y92.038 Other place in apartment as the place of occurrence of the external cause; Y99.8 Other external cause status; Z90.49 Acquired absence of other specified parts of digestive tract; Z84.1 Family history of disorders of kidney and ureter; Z82.49 Family history of ischemic heart disease and other diseases of the circulatory system; Z80.8 Family history of malignant neoplasm of other organs or systems; Z68.22 Body mass index [BMI] 22.0-22.9, adult; D62 Acute posthemorrhagic anemia; I46.9 Cardiac arrest, cause unspecified; N45.1 Epididymitis; Z66 Do not resuscitate; Z51.5 Encounter for palliative care; I25.10 Atherosclerotic heart disease of native coronary artery without angina pectoris
CPT/HCPCS: 36556; 36600; 82962; 83880; 84439; 87046; 87046-59; 92610; 92610-GN; 97110-GP; 97116-GP; 97530-GP; 97535-GP; A4628; C9113; J0132; J0282; J0360; J0610; J0696; J0713; J0885-EC; J1642; J1644; J1815; J1940; J1956; J2060; J2250; J2270; J2543; J2920; J3010; J3230; J3475; J3480; J3490; J7030; J7040; J7042; J7050; J7060; J7507; J7517; J7620; P9016; Q0092; Q0163